=== PATIENT | female | born 1985 | race Hispanic/Latino ===

== ENCOUNTER 2018-07-17 18:28 | Inpatient (IN) | payer MEDICAID ==
[2018-07-17 18:33] VITALS: BMI 27.8
--- NOTE | 2018-07-17 19:22 | C.PDOC ---
History Of Present Illness 32 year old female presents as a prescreen for heroin detox. Patient was clean for 3 years. Time Seen by Provider: 07/17/18 18:56 Chief Complaint (Nursing): Substance Abuse History Per: Patient History/Exam Limitations: no limitations Onset/Duration Of Symptoms: Hrs Involuntary Hold By: None Recent travel outside of the [place]: No Past Medical History Reviewed: Historical Data, Nursing Documentation, Vital Signs Vital Signs: Last Vital Signs Temp 98.4 F 07/17/18 18:33 Pulse 81 07/17/18 18:33 Resp 18 07/17/18 18:33 BP 123/75 07/17/18 18:33 Pulse Ox 95 07/17/18 18:33 - [facility] Procedures ESOPHAGOGASTRODUODENOSCOPY [EGD] W/CLOSED BIOPSY (06/24/06) Family History: States: Unknown Family Hx - Social History Hx Alcohol Use: No Hx Substance Use: Yes (heroin) - Immunization History Hx Tetanus Toxoid Vaccination: No Hx Influenza Vaccination: No Hx Pneumococcal Vaccination: No Review Of Systems Constitutional: Negative for: Fever, Chills Cardiovascular: Negative for: Chest Pain, Palpitations Respiratory: Negative for: Cough, Shortness of Breath Gastrointestinal: Negative for: Nausea, Vomiting Neurological: Negative for: Weakness, Numbness Physical Exam - Physical Exam Appears: Non-toxic, Other (Pleasant, cooperative) Skin: Warm, Dry, Other (Multiple tattoos on arms) Head: Atraumatic, Normacephalic Eye(s): bilateral: Normal Inspection, PERRL, EOMI Oral Mucosa: Moist Chest: Symmetrical, No Tenderness Cardiovascular: Rhythm Regular Respiratory: Normal Breath Sounds, No Rales, No Rhonchi, No Wheezing Gastrointestinal/Abdominal: Soft, No Tenderness Neurological/Psych: Oriented x3, Normal Speech ED Course And Treatment - Laboratory Results Result Diagrams: 07/20/18 07:35 07/20/18 07:35 O2 Sat by Pulse Oximetry: 95 (Room air) Pulse Ox Interpretation: Normal Disposition Counseled Patient/Family Regarding: Studies Performed, Diagnosis - Disposition Disposition: HOSPITALIZED Disposition Time: 09:00 Condition: GOOD - Clinical Impression Clinical Impression: Polysubstance (including opioids) dependence with physiol dependence - Scribe Statement The provider has reviewed the documentation as recorded by the Scribe Leland Marroquin All medical record entries made by the Scribe were at my direction and personally dictated by me. I have reviewed the chart and agree that the record accurately reflects my personal performance of the history, physical exam, medical decision making, and the department course for this patient. I have also personally directed, reviewed, and agree with the discharge instructions and disposition.
[2018-07-17 19:23] LABS: BASO % 0.7 % (0.0-2.0); EOS % 0.1 % (0.0-4.0); HEMOGLOBIN 11.5 g/dL (11.0-16.0); LYMPH # 1.5 K/uL (1.0-4.3); LYMPH % 26.3 % (20.0-40.0); MEAN CELL VOLUME 82.7 fL (81.0-99.0); MEAN CORPUSCULAR HGB CONC 33.8 g/dL (33.0-37.0); MEAN PLATELET VOLUME 9.1 fL (7.2-11.7); MONO # 0.4 K/uL (0.0-0.8); MONO % 7.1 % (0.0-10.0); NEUT # 3.7 K/uL (1.8-7.0); NEUT % 65.8 % (50.0-75.0); NRBC % 0.2 % (0.0-2.0); RBC 4.12 Mil/uL (3.80-5.20); RED CELL DISTRIBUTION WIDTH 13.1 % (11.5-14.5); WHITE BLOOD COUNT 5.6 K/uL (4.8-10.8)
[2018-07-17 19:28] LABS: HCG,QUALITATIVE URINE NEGATIVE (NEGATIVE)
[2018-07-17 19:33] LABS: SQUAMOUS EPITHIAL 1 /hpf (0-5); URINE BILIRUBIN NEGATIVE (NEGATIVE); URINE BLOOD NEGATIVE (NEGATIVE); URINE CLARITY Clear (Clear); URINE COLOR Yellow (YELLOW); URINE GLUCOSE (UA) NORMAL (Normal); URINE LEUKOCYTE ESTERASE NEG Leu/uL (Negative); URINE PROTEIN NEGATIVE (NEGATIVE); URINE UROBILINOGEN NORMAL mg/dL (0.2-1.0)
[2018-07-17 19:38] LABS: ALB/GLOB RATIO 1.3 (1.0-2.1); ALBUMIN 3.6 g/dL (3.5-5.0); ALT/SGPT 23 U/L (9-52); AST/SGOT 33 U/L (14-36); BLOOD UREA NITROGEN 10 mg/dL (7-17); CALCIUM 8.4 mg/dl (8.6-10.4); GFR NON-AFRICAN AMERICAN > 60
[2018-07-17 19:41] LABS: BARBITURATES, UR NEGATIVE (NEGATIVE); BENZODIAZEPINES, UR NEGATIVE (NEGATIVE); PHENCYCLIDINE, UR NEGATIVE (NEGATIVE)
[2018-07-17 19:57] LABS: OPIATES, UR POSITIVE (NEGATIVE)
--- NOTE | 2018-07-17 20:14 | C.PDOC ---
Time Seen by Provider: 07/17/18 18:56 Chief Complaint (Nursing): Substance Abuse Past Medical History Vital Signs: Last Vital Signs Temp 98.4 F 07/17/18 18:33 Pulse 81 07/17/18 18:33 Resp 18 07/17/18 18:33 BP 123/75 07/17/18 18:33 Pulse Ox 95 07/17/18 18:33 - [facility] Procedures ESOPHAGOGASTRODUODENOSCOPY [EGD] W/CLOSED BIOPSY (06/24/06) - Social History Hx Alcohol Use: No Hx Substance Use: Yes (heroin) - Immunization History Hx Tetanus Toxoid Vaccination: No Hx Influenza Vaccination: No Hx Pneumococcal Vaccination: No ED Course And Treatment - Laboratory Results Lab Interpretation: Normal Urine POC: Positive (+ tox cocaine/opiates) O2 Sat by Pulse Oximetry: 95 Pulse Ox Interpretation: Normal Reevaluation Time: 20:14 Reassessment Condition: Unchanged Disposition Doctor Will See Patient In The: Hospital Counseled Patient/Family Regarding: Studies Performed, Diagnosis - Disposition Disposition: HOSPITALIZED Disposition Time: 20:14 Condition: GOOD - Clinical Impression Clinical Impression: Polysubstance (including opioids) dependence with physiol dependence
--- NOTE | 2018-07-17 20:59 | PCM.BM ---
Treatment Plan Problems - Problems identified on initial assessmt Defensive Coping Date Initiated: 07/17/18 Time Initiated: 21:03 Assessment reference: NA Status: Active Denial Date Initiated: 07/17/18 Time Initiated: 21:03 Assessment reference: NA Status: Active Treatment assets and liabiliti Patient Assests: cooperative, ADL independent, cognitively intact Patient Liabilities: substance abuse - Milieu Protocol Maintain good personal hygiene: daily Encourage regular showers, daily Remind patient to perform daily oral care, daily Assist patient to perform ADL's Maintain personal safety: every shift Educate patient to report safety concerns to staff, every shift Monitor environment for contraband/sharps Medication safety: Monitor for expected outcome, potential side effects: every shift, Assess barriers to learning: every shift, Assess readiness for medication education: every shift
[2018-07-18] MEDS ORDERED: Aluminum Hydroxide/Magnesium Hydroxide Susp (30 mL) PO PRN (09:02)
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
[2018-07-18] MEDS ORDERED: guaiFENesin DM 100 mg-10 mg/5 ml UD PO PRN ×2 (19:32→23:00)
[2018-07-18] MEDS ORDERED: Buprenorphine Hydrochloride 2 mg SL ONE ×3 (19:33→23:00)
[2018-07-18] MEDS ORDERED: DiphenhydrAMINE 50 mg/ml Inj IM ONE (21:51)
[2018-07-19] MEDS ORDERED: Buprenorphine Hydrochloride 2 mg SL SCH (10:00)
[2018-07-19] MEDS: Bacitracin 500 Units/gm Oint Foilpak UD TOP SCH ×3 (11:00→17:19)
[2018-07-19] MEDS: Buprenorphine Hydrochloride 2 mg SL SCH (11:11)
[2018-07-19] MEDS: Amoxicillin-Clav 500-125 mg Tab PO SCH ×2 (12:13→21:17)
--- NOTE | 2018-07-20 01:45 | PCM.PYCHPN ---
Psychiatric Progress Note - Psychiatric Progress Note Patient seen today, length of contact: 20 min Patient Chief Complaint: "I am very sick" Problems Identified/Issues Discussed: Wanted to leave but agreed to stay Had a very bad day due to anxiety yesterday, numerous meds given Medication Change: Yes Medical Record Reviewed: Yes Mental Status Examination - Cognitive Function Orientation: Person, Place, Situation, Time - Mood Mood: Depressed - Affect Affect: Constricted - Formal Thought Process Formal Thought Process: No Impairment Goal/Treatment Plan - Goal/Treatment Plan Progress Toward Problem(s) and Goals/Treatment Plan: Taper with subutex Gabapentin for augmentation Lexapro for depression, anxiety As needed medications All risks, benefits and alternatives of the meds discussed, and the pt agreed and understood. Attend groups and activities Supportive therapy and psychoeducation [place] for abstinence CBT for relapse prevention Encourage MAT Refer to rehab or IOP, and self-help groups Teach healthy lifestyle methods, i.e. diet, exercise, meditation Smoking cessation with [place] Nicotine patch if needed Medical consult for skin lesions 34 min
--- NOTE | 2018-07-20 07:05 | CON ---
DATE: 07/19/2018 The patient was seen and examined at the bedside on 07/19/2018. CHIEF COMPLAINT: Hepatitis C positive, ulcer on the hand. HISTORY OF PRESENT ILLNESS: The patient is a 32-year-old female with past medical history of hepatitis C, never got treatment, history of cocaine abuse. Has relaxed for 3 years. Has a 5-year-old child, single, not , living with the parents. After 3 years of clean history, last month she started using again heroin. She is using 10 bags IV and last use was last night. She has track redman on her upper extremities. Her first use was in her late teenage. She had detoxified 5 times, but rehabbed only once. She uses cocaine intranasally one bottle a day. Also replaced sometimes with heroin. She denies alcohol, marijuana and other drugs, but smokes one pack per day cigarette. She also has a history of OD's and many complications. She came into [facility] for detoxification. Feels depressed and anxious. Has a passive suicidal ideation without any plan. I was called for medical problems. She has an ulcer on the hand, and face and extremities have small abscesses and hepatitis C. We gave Augmentin p.o. and Bactroban. ID consult called. PAST MEDICAL HISTORY: Hepatitis C, cocaine abuse, history of anxiety, depression, difficult concentrating, irritability, mood swings, panic attack, suicidal ideations. HABITS: Smoking, yes. Alcohol, no. As per the patient drug abuse, yes. FAMILY HISTORY: Father and mother noncontributory. ALLERGIES: THE PATIENT IS NOT ALLERGIC WITH ANY MEDICATIONS. HOME MEDICATIONS: Denied. REVIEW OF SYSTEMS: The patient was seen and examined at the bedside on the seventh floor, detoxification department, having ulcer on the hand and abscess on the face and extremities. No fever. No chills. No hematuria or hematochezia. No headaches or dizziness. No chest pain. No palpitation. PHYSICAL EXAMINATION: VITAL SIGNS: Temperature 98.5, pulse 84, blood pressure 124/84, pulse oximetry 18. HEENT: Head: Normocephalic and atraumatic. Eyes: PERRLA. Extraocular muscles are intact. Conjunctivae clear. Nose patent. Mucous membrane moist. NECK: Supple. No carotid bruits, JVD, or thyromegaly. CHEST: Bilaterally symmetrical. HEART: S1 and S2 positive. LUNGS: Clear to auscultation. ABDOMEN: Soft. Bowel sounds present. No organomegaly. EXTREMITIES: No edema. No cyanosis. NEUROLOGIC: The patient is awake and alert. Moving all four extremities. No focal deficit. LABORATORY DATA: White blood cells 5.6, hemoglobin 11.5, hematocrit 34, platelets 190. Sodium 141, potassium 3.9, BUN 10, creatinine 0.6, calcium 8.4. Liver function tests within normal limits. ASSESSMENT AND PLAN: Ms. Elisa Miles is a 32-year-old lady with hypocalcemia. Drug screen positive with opiates and cocaine. History of hepatitis C positive. Cellulitis of the hand. Has track redman, abscesses on the face and other parts of the body, starting the patient on Augmentin and Bactroban substance abuse, Psychiatry is on the case. With hepatitis C positive, biopsy . We will repeat labs. Gastrointestinal and deep venous thrombosis prophylaxis. Thank you for consultation. Thank you for taking care of the patient. Smitha Jo MD
[2018-07-20 07:49] LABS: HEMOGLOBIN 13.3 g/dL (11.0-16.0); MEAN CELL VOLUME 81.7 fL (81.0-99.0); MEAN CORPUSCULAR HEMOGLOBIN 27.6 pg (27.0-31.0); MEAN CORPUSCULAR HGB CONC 33.8 g/dL (33.0-37.0); MEAN PLATELET VOLUME 9.5 fL (7.2-11.7); RBC 4.8 Mil/uL (3.80-5.20); RED CELL DISTRIBUTION WIDTH 13.2 % (11.5-14.5)
[2018-07-20 07:52] LABS: WHITE BLOOD COUNT 8.8 K/uL (4.8-10.8)
[2018-07-20 08:06] LABS: IRON 64 ug/dL (37-170)
[2018-07-20 08:12] LABS: BLOOD UREA NITROGEN 12 mg/dL (7-17); CALCIUM 8.7 mg/dl (8.6-10.4); GFR NON-AFRICAN AMERICAN > 60
[2018-07-20 08:15] LABS: % IRON SATURATION 20 (20-55); TOTAL IRON BINDING CAPACITY 318 ug/dL (250-450)
[2018-07-20 09:15] VITALS: BP 119/77; PULSE 93; RESP 20; TEMP 98.2
[2018-07-20 09:35] LABS: FOLATE 16.4 ng/mL
[2018-07-20] MEDS: Buprenorphine Hydrochloride 2 mg SL SCH (09:50)
[2018-07-20] MEDS: Bacitracin 500 Units/gm Oint Foilpak UD TOP SCH (09:50)
[2018-07-20] MEDS: Amoxicillin-Clav 500-125 mg Tab PO SCH (09:51)
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
[2018-07-20 23:50] VITALS: O2SAT 95
== END 2018-07-20 10:45 | disposition left against medical advice (07) | DRG 430 ==
LOC: C.ER 18:28 → C.7D 20:13 → OBSVTOIN 07-18 14:57
PROVIDERS: ADMIT Psychiatry & Neurology Psychiatry; ATTEND Psychiatry & Neurology Psychiatry
PROC: GZ56ZZZ Individual Psychotherapy, Supportive (ICD-10-PCS; principal; 2018-07-18)
DX: F33.2 Major depressive disorder, recurrent severe without psychotic features (principal); F14.90 Cocaine use, unspecified, uncomplicated; L02.01 Cutaneous abscess of face; B19.20 Unspecified viral hepatitis C without hepatic coma; F11.23 Opioid dependence with withdrawal; F14.10 Cocaine abuse, uncomplicated; L03.119 Cellulitis of unspecified part of limb; F17.210 Nicotine dependence, cigarettes, uncomplicated; E83.51 Hypocalcemia; F43.10 Post-traumatic stress disorder, unspecified; F41.0 Panic disorder [episodic paroxysmal anxiety]; R45.851 Suicidal ideations